=== PATIENT | male | born 1950 | race Caucasian/White ===

== ENCOUNTER 2017-11-14 18:28 | Inpatient (IN) ==
[2017-11-14] MEDS ORDERED: PIPERACILLIN/TAZOBACTAM 3,375 MG in SODIUM CHLORIDE 0.9% 100 ML IV STA (18:46)
[2017-11-14] MEDS ORDERED: FUROSEMIDE 100 MG/10 ML VIAL IV STA (18:46)
[2017-11-14 19:02] LABS: Basophils % 0.1 % (0.0-0.8); Hematocrit 38.7 VOL% (42.0-52.0); Immature Granulocytes % 1.2 %; Immature Granulocytes Absolute 0.08 #; Lymphocytes # 0.3 10*3/uL (1.4-4.0); Lymphocytes % 4.7 % (21.2-54.2); Mean Corpuscular HGB Conc 33.6 GM/DL (32-36); Mean Corpuscular Hemoglobin 32 PG (27-34); Mean Platelet Volume 10.3 FL (9.6-12.0); Monocytes # 0.3 10*3/uL (0.11-0.8); Monocytes % 4.7 % (1.7-12.7); Neutrophils # 6.1 10*3/uL (1.4-7.4); Neutrophils % 89.3 % (38.7-73.9); Platelet Count 111 T/CUMM (130-400); Red Blood Count 4.03 MC/CUMM (3.8-5.5); Red Cell Distribution Width 16.7 % (9.3-17.3); White Blood Count 6.8 T/CUMM (4-12)
[2017-11-14] MEDS: ALBUTEROL 2.5 MG/3 ML NEB RESP TX SCH (19:08)
[2017-11-14 19:20] LABS: INR 0.9; Partial Thromboplastin Time 26.5 SECS (0-40)
[2017-11-14 19:27] LABS: Albumin 2.7 G/DL (3.4-5.0); Bilirubin,Total 0.9 MG/DL (0.2-1.0); Calcium 10.3 MG/DL (8.5-10.1); Osmolality,Calculated 287.5 MOS/KG (273-304); Potassium 3.9 MMOL/L (3.5-5.1); Total Protein 6.3 G/DL (6.4-8.3); Troponin I Only 0.039 NG/ML (0.00-0.045)
[2017-11-14] MEDS ORDERED: SODIUM CHLORIDE 0.9% 100 ML IV ONE (20:03)
[2017-11-14] MEDS ORDERED: PIPERACILLIN/TAZOBACTAM 3,375 MG VIAL IV ONE (20:03)
[2017-11-14] MEDS ORDERED: FUROSEMIDE 40 MG/4 ML VIAL ONE (20:04)
[2017-11-14 21:03] LABS: Lymphocytes 7 % (20-55); Platelet Estimate Decreased; Segmented Neutrophils 86 % (50-85); Total Cells Counted 100
[2017-11-14 21:18] LABS: ABG HCO3 33.8 MMOL/L (20-26); ABG Oxygen Saturation 88.8 % (95-100); ABG PCO2 51.4 MM HG (35-48); ABG PH 7.436 (7.35-7.45); ABG PO2 55.7 MM HG (80-95); ABG TCO2 35.4 MMOL/L (23-27); Allen Test Positive
[2017-11-14] MEDS ORDERED: DEXTROSE 50% 25 GM/50 ML VIAL IV PRN (22:29)
[2017-11-14] MEDS ORDERED: GLUCAGON 1 MG VIAL IM PRN (22:29)
[2017-11-14] MEDS ORDERED: SODIUM CHLORIDE 0.9% 500 ML IV ONE (22:29)
[2017-11-14] MEDS ORDERED: ONDANSETRON 4 MG/2 ML VIAL IV PRN (22:29)
[2017-11-14] MEDS ORDERED: ENOXAPARIN 40 MG/0.4 ML SYRINGE SUBCUT SCH (22:29)
[2017-11-14] MEDS ORDERED: methylPREDNISolone SOD SUC 125 MG/2 ML VIAL IV ONE (22:29)
[2017-11-14] MEDS ORDERED: ALBUTEROL/IPRATROPIUM 3 ML NEB RESP TX PRN (22:29)
[2017-11-14] MEDS ORDERED: HEPARIN 5,000 UNIT/1 ML VIAL IV ONE (22:47)
[2017-11-14 22:51] LABS: Apearance,Urine Slightly Hazy (Clear); Bacteria,Urine Many /HPF (Few); Bilirubin,Urine Negative (Negative); Blood, Urine Small mg/dL (Negative); Glucose,Urine (UA) 150 mg/dL (Negative); Hyaline Casts,Urine 9 /LPF (0-3); Ketones,Urine Negative (Negative); Mucus,Urine Few /LPF (Occasional); Nitrite,Urine Negative (Negative); Protein,Urine Negative; RBC,Urine 5 /HPF (0-4); Urine Color Yellow (Yellow); Urine Specific Gravity 1.013 (1.001-1.035); Urine Urobilinogen < 2.0 EU/DL (0.2-1.0); WBC,Urine 5 /HPF (0-6)
[2017-11-14] MEDS ORDERED: KETAMINE 500 MG/10 ML VIAL ONE (23:08)
[2017-11-14] MEDS ORDERED: ROCURONIUM 100 MG/10 ML VIAL IV ONE ×2 (23:09→23:14)
[2017-11-14] MEDS ORDERED: KETAMINE 500 MG/10 ML VIAL IV ONE (23:14)
[2017-11-14] MEDS: PROPOFOL 1,000 MG/100 ML BOTTLE IV SCH (23:20)
[2017-11-14] MEDS ORDERED: NOREPINEPHRINE 4 MG/4 ML VIAL IV ONE (23:23)
[2017-11-14] MEDS: HEPARIN DRIP 25,000 UNITS/500 ML PREMIX IV SCH (23:41)
[2017-11-14] MEDS: SODIUM CHLORIDE 0.9% 1,000 ML IV SCH (23:52)
[2017-11-15] MEDS: fentaNYL INJ 1,250 MCG in SODIUM CHLORIDE 0.9% 225 ML IV SCH ×3 (00:26→23:45)
[2017-11-15] MEDS: NOREPINEPHRINE 8 MG in SODIUM CHLORIDE 0.9% 242 ML IV SCH ×2 (00:30→23:44)
[2017-11-15] MEDS: INSULIN REGULAR 100 UNIT/ML SUBCUT SCH ×4 (00:52→17:15)
[2017-11-15 01:07] LABS: ABG HCO3 30.7 MMOL/L (20-26); ABG Oxygen Saturation 95.1 % (95-100); ABG PCO2 45.5 MM HG (35-48); ABG PH 7.453 (7.35-7.45); ABG TCO2 28.3 MMOL/L (23-27)
[2017-11-15] MEDS: ALBUTEROL/IPRATROPIUM 3 ML NEB RESP TX SCH ×4 (01:45→19:21)
[2017-11-15] MEDS: LEVOFLOXACIN INJ 750 MG in PREMIX 1 EACH IV SCH ×2 (02:11→22:26)
[2017-11-15 04:27] LABS: ABG Base Excess 4.9 MMOL/L (-2.5-2.5); ABG HCO3 28.9 MMOL/L (20-26); ABG PCO2 41.4 MM HG (35-48); ABG PH 7.456 (7.35-7.45); ABG TCO2 26.2 MMOL/L (23-27)
[2017-11-15 04:29] LABS: Hematocrit 33.2 VOL% (42.0-52.0); Hemoglobin 10.8 GM/DL (14.0-18.0); Immature Granulocytes % 0.7 %; Immature Granulocytes Absolute 0.04 #; Lymphocytes # 0.3 10*3/uL (1.4-4.0); Lymphocytes % 4.6 % (21.2-54.2); Mean Corpuscular HGB Conc 32.5 GM/DL (32-36); Mean Corpuscular Hemoglobin 31 PG (27-34); Mean Corpuscular Volume 96.5 FL (87-102); Mean Platelet Volume 10.4 FL (9.6-12.0); Monocytes # 0.2 10*3/uL (0.11-0.8); Monocytes % 3.3 % (1.7-12.7); Neutrophils # 5.5 10*3/uL (1.4-7.4); Neutrophils % 91.4 % (38.7-73.9); Red Blood Count 3.44 MC/CUMM (3.8-5.5); Red Cell Distribution Width 16.8 % (9.3-17.3)
[2017-11-15 04:32] LABS: Platelet Count 98 T/CUMM (130-400)
[2017-11-15] MEDS: PIPERACILLIN/TAZOBACTAM 3,375 MG in SODIUM CHLORIDE 0.9% 100 ML IV SCH ×3 (05:01→20:14)
[2017-11-15 05:09] LABS: Albumin 2.2 G/DL (3.4-5.0); Bilirubin,Total 0.6 MG/DL (0.2-1.0); Calcium 9.2 MG/DL (8.5-10.1); Osmolality,Calculated 291.5 MOS/KG (273-304); Potassium 3.7 MMOL/L (3.5-5.1); Risk Ratio 2.7; Total Protein 5.3 G/DL (6.4-8.3); VLDL CHOLESTEROL 23.4 MG/DL
[2017-11-15] MEDS: SODIUM CHLORIDE 0.9% 1,000 ML IV SCH ×4 (05:57→22:13)
[2017-11-15] MEDS: methylPREDNISolone SOD SUC 40 MG/1 ML VIAL IV SCH ×3 (06:20→17:15)
[2017-11-15 07:59] LABS: Band Neutrophils 14 % (0-10); Hypochromasia Slight; Lymphocytes 3 % (20-55); Platelet Estimate Decreased; Segmented Neutrophils 82 % (50-85); Total Cells Counted 100
[2017-11-15 08:44] LABS: ABG Base Excess 5.4 MMOL/L (-2.5-2.5); ABG HCO3 29.3 MMOL/L (20-26); ABG Oxygen Saturation 97.7 % (95-100); ABG PCO2 51.3 MM HG (35-48); ABG PH 7.396 (7.35-7.45); ABG PO2 94.7 MM HG (80-95); ABG TCO2 28.2 MMOL/L (23-27)
[2017-11-15] MEDS: POLYETHYLENE GLYCOL POWDER 17 GM PACK PO SCH (09:00)
[2017-11-15] MEDS: VANCOMYCIN INJ 1,500 MG in SODIUM CHLORIDE 0.9% 500 ML IV SCH ×3 (11:00→22:26)
[2017-11-15] MEDS: PROPOFOL 1,000 MG/100 ML BOTTLE IV SCH ×2 (15:00→23:43)
[2017-11-15] MEDS: HEPARIN DRIP 25,000 UNITS/500 ML PREMIX IV SCH ×2 (15:00→22:23)
[2017-11-15] MEDS ORDERED: ASPIRIN CHEW 81 MG TABLET PO ONE (17:48)
[2017-11-15] MEDS: PANTOPRAZOLE 40 MG VIAL IV SCH ×2 (20:14)
[2017-11-16] MEDS: methylPREDNISolone SOD SUC 40 MG/1 ML VIAL IV SCH ×4 (00:18→18:31)
[2017-11-16] MEDS: INSULIN REGULAR 100 UNIT/ML SUBCUT SCH ×4 (00:19→18:30)
[2017-11-16] MEDS: ALBUTEROL/IPRATROPIUM 3 ML NEB RESP TX SCH ×4 (01:19→19:56)
[2017-11-16] MEDS: PIPERACILLIN/TAZOBACTAM 3,375 MG in SODIUM CHLORIDE 0.9% 100 ML IV SCH ×3 (03:35→20:40)
[2017-11-16 03:57] LABS: ABG HCO3 27.1 MMOL/L (20-26); ABG Oxygen Saturation 97.9 % (95-100); ABG PH 7.342 (7.35-7.45); ABG TCO2 27.2 MMOL/L (23-27)
[2017-11-16 04:27] LABS: Hematocrit 30.3 VOL% (42.0-52.0); Hemoglobin 10.1 GM/DL (14.0-18.0); Immature Granulocytes % 1.2 %; Immature Granulocytes Absolute 0.06 #; Lymphocytes # 0.3 10*3/uL (1.4-4.0); Lymphocytes % 6.9 % (21.2-54.2); Mean Corpuscular HGB Conc 33.3 GM/DL (32-36); Mean Corpuscular Hemoglobin 32 PG (27-34); Mean Corpuscular Volume 94.4 FL (87-102); Mean Platelet Volume 10.3 FL (9.6-12.0); Monocytes # 0.1 10*3/uL (0.11-0.8); Monocytes % 2.6 % (1.7-12.7); Neutrophils # 4.4 10*3/uL (1.4-7.4); Neutrophils % 89.3 % (38.7-73.9); Platelet Count 84 T/CUMM (130-400); Red Blood Count 3.21 MC/CUMM (3.8-5.5); Red Cell Distribution Width 15.9 % (9.3-17.3); White Blood Count 4.9 T/CUMM (4-12)
[2017-11-16] MEDS: PROPOFOL 1,000 MG/100 ML BOTTLE IV SCH ×3 (04:47→20:41)
[2017-11-16 05:04] LABS: Band Neutrophils 26 % (0-10); Lymphocytes 11 % (20-55); Segmented Neutrophils 63 % (50-85); Total Cells Counted 100
[2017-11-16 05:05] LABS: Anisocytosis 1+; Polychromasia Slight
[2017-11-16 05:07] LABS: Calcium 9.6 MG/DL (8.5-10.1); Potassium 3.2 MMOL/L (3.5-5.1)
[2017-11-16] MEDS: SODIUM CHLORIDE 0.9% 1,000 ML IV SCH ×3 (06:54→23:33)
[2017-11-16] MEDS ORDERED: LIDOCAINE 2% 20 ML VIAL RESP TX ONE (06:59)
[2017-11-16] MEDS ORDERED: LIDOCAINE 1% 20 ML VIAL MISC INJ ONE (06:59)
[2017-11-16] MEDS: POLYETHYLENE GLYCOL POWDER 17 GM PACK PO SCH (10:05)
[2017-11-16] MEDS: BACLOFEN 10 MG TABLET PO SCH ×3 (10:07→20:57)
[2017-11-16] MEDS: DULoxetine 30 MG CAPSULE PO SCH (10:07)
[2017-11-16] MEDS: ASPIRIN CHEW 81 MG TABLET PO SCH (10:07)
[2017-11-16] MEDS: rOPINIRole 4 MG TABLET PO SCH ×3 (10:07→20:59)
[2017-11-16] MEDS: APIXABAN 5 MG TABLET PO SCH ×2 (10:13→20:57)
[2017-11-16] MEDS: GABAPENTIN 600 MG TABLET PO SCH ×4 (10:13→20:57)
[2017-11-16] MEDS: POTASSIUM CHLORIDE RIDER 20 MEQ in PREMIX 1 EACH IV SCH ×2 (10:14→11:15)
[2017-11-16] MEDS: fentaNYL INJ 1,250 MCG in SODIUM CHLORIDE 0.9% 225 ML IV SCH ×2 (12:03→19:21)
[2017-11-16] MEDS: VANCOMYCIN INJ 1,500 MG in SODIUM CHLORIDE 0.9% 500 ML IV SCH ×2 (15:53→23:32)
[2017-11-16] MEDS: PANTOPRAZOLE 40 MG VIAL IV SCH (20:57)
[2017-11-16] MEDS: ATORVASTATIN 80 MG TABLET PO SCH (20:57)
[2017-11-16] MEDS: LEVOFLOXACIN INJ 750 MG in PREMIX 1 EACH IV SCH (22:22)
[2017-11-16] MEDS: NOREPINEPHRINE 8 MG in SODIUM CHLORIDE 0.9% 242 ML IV SCH (23:31)
[2017-11-17] MEDS: methylPREDNISolone SOD SUC 40 MG/1 ML VIAL IV SCH ×4 (00:01→21:50)
[2017-11-17] MEDS: INSULIN REGULAR 100 UNIT/ML SUBCUT SCH ×5 (00:01→23:53)
[2017-11-17] MEDS: fentaNYL INJ 1,250 MCG in SODIUM CHLORIDE 0.9% 225 ML IV SCH ×3 (00:11→13:48)
[2017-11-17] MEDS: ALBUTEROL/IPRATROPIUM 3 ML NEB RESP TX SCH ×4 (01:24→19:20)
[2017-11-17 03:49] LABS: Hematocrit 27.5 VOL% (42.0-52.0); Hemoglobin 8.8 GM/DL (14.0-18.0); Immature Granulocytes % 2.2 %; Immature Granulocytes Absolute 0.09 #; Lymphocytes # 0.3 10*3/uL (1.4-4.0); Lymphocytes % 7.6 % (21.2-54.2); Mean Corpuscular Hemoglobin 31 PG (27-34); Mean Corpuscular Volume 98.2 FL (87-102); Mean Platelet Volume 10.2 FL (9.6-12.0); Monocytes # 0.1 10*3/uL (0.11-0.8); Monocytes % 3.4 % (1.7-12.7); Neutrophils # 3.5 10*3/uL (1.4-7.4); Neutrophils % 86.8 % (38.7-73.9); Red Cell Distribution Width 15.9 % (9.3-17.3); White Blood Count 4.1 T/CUMM (4-12)
[2017-11-17 04:01] LABS: Platelet Count 81 T/CUMM (130-400)
[2017-11-17] MEDS: PIPERACILLIN/TAZOBACTAM 3,375 MG in SODIUM CHLORIDE 0.9% 100 ML IV SCH ×3 (04:02→20:27)
[2017-11-17 04:05] LABS: ABG HCO3 26.2 MMOL/L (20-26); ABG Oxygen Saturation 98.3 % (95-100); ABG PCO2 49.3 MM HG (35-48); ABG PH 7.362 (7.35-7.45); ABG TCO2 25.8 MMOL/L (23-27)
[2017-11-17 04:12] LABS: Calcium 9.3 MG/DL (8.5-10.1); Potassium 3.9 MMOL/L (3.5-5.1)
[2017-11-17 04:46] LABS: Band Neutrophils 2 % (0-10); Giant Platelets Few; Hypochromasia 1+; Lymphocytes 7 % (20-55); Ovalocytes Slight; Platelet Estimate Decreased; Segmented Neutrophils 87 % (50-85); Total Cells Counted 100
[2017-11-17] MEDS: PROPOFOL 1,000 MG/100 ML BOTTLE IV SCH (06:01)
[2017-11-17] MEDS: SODIUM CHLORIDE 0.9% 1,000 ML IV SCH ×3 (07:46→18:13)
[2017-11-17] MEDS: rOPINIRole 4 MG TABLET PO SCH ×3 (09:36→20:26)
[2017-11-17] MEDS: APIXABAN 5 MG TABLET PO SCH ×2 (09:36→20:27)
[2017-11-17] MEDS: DULoxetine 30 MG CAPSULE PO SCH (09:36)
[2017-11-17] MEDS: GABAPENTIN 600 MG TABLET PO SCH ×4 (09:36→20:27)
[2017-11-17] MEDS: BACLOFEN 10 MG TABLET PO SCH ×3 (09:37→20:26)
[2017-11-17] MEDS: POLYETHYLENE GLYCOL POWDER 17 GM PACK PO SCH (09:37)
[2017-11-17] MEDS: ASPIRIN CHEW 81 MG TABLET PO SCH (09:37)
[2017-11-17] MEDS: DEXMEDETOMIDINE 200 MCG in SODIUM CHLORIDE 0.9% 48 ML IV SCH ×4 (09:45→20:25)
[2017-11-17] MEDS ORDERED: HALOPERIDOL 5 MG/ML AMP ONE (10:32)
[2017-11-17] MEDS: HALOPERIDOL 5 MG/ML AMP IV SCH ×2 (10:52→20:27)
[2017-11-17] MEDS: MORPHINE 2 MG/1 ML SYRINGE IV PRN (10:52)
[2017-11-17] MEDS: VANCOMYCIN INJ 1,500 MG in SODIUM CHLORIDE 0.9% 500 ML IV SCH (11:25)
[2017-11-17] MEDS: FUROSEMIDE 40 MG/4 ML VIAL IV SCH ×2 (13:44→17:52)
[2017-11-17] MEDS: LISINOPRIL 5 MG TABLET PO SCH (13:45)
[2017-11-17] MEDS: ATORVASTATIN 80 MG TABLET PO SCH (20:26)
[2017-11-17] MEDS: PANTOPRAZOLE 40 MG VIAL IV SCH (20:32)
[2017-11-17] MEDS: LEVOFLOXACIN INJ 750 MG in PREMIX 1 EACH IV SCH (22:25)
[2017-11-17] MEDS: NOREPINEPHRINE 8 MG in SODIUM CHLORIDE 0.9% 242 ML IV SCH (23:52)
[2017-11-18] MEDS: VANCOMYCIN INJ 1,500 MG in SODIUM CHLORIDE 0.9% 500 ML IV SCH (00:16)
[2017-11-18] MEDS: SODIUM CHLORIDE 0.9% 1,000 ML IV SCH ×3 (00:18→17:46)
[2017-11-18] MEDS: fentaNYL INJ 1,250 MCG in SODIUM CHLORIDE 0.9% 225 ML IV SCH ×3 (00:18→18:21)
[2017-11-18] MEDS: ALBUTEROL/IPRATROPIUM 3 ML NEB RESP TX SCH ×4 (00:20→18:57)
[2017-11-18] MEDS: DEXMEDETOMIDINE 200 MCG in SODIUM CHLORIDE 0.9% 48 ML IV SCH ×4 (01:50→10:44)
[2017-11-18 03:55] LABS: ABG Base Excess 4.6 MMOL/L (-2.5-2.5); ABG HCO3 30.5 MMOL/L (20-26); ABG Oxygen Saturation 95.8 % (95-100); ABG PCO2 51.5 MM HG (35-48); ABG PH 7.391 (7.35-7.45); ABG PO2 81.5 MM HG (80-95); ABG TCO2 32.1 MMOL/L (23-27)
[2017-11-18] MEDS: PIPERACILLIN/TAZOBACTAM 3,375 MG in SODIUM CHLORIDE 0.9% 100 ML IV SCH ×3 (04:04→21:10)
[2017-11-18 04:06] LABS: Basophils % 0.1 % (0.0-0.8); Hematocrit 34.5 VOL% (42.0-52.0); Hemoglobin 11.4 GM/DL (14.0-18.0); Immature Granulocytes % 3.3 %; Immature Granulocytes Absolute 0.23 #; Lymphocytes # 0.3 10*3/uL (1.4-4.0); Lymphocytes % 4.1 % (21.2-54.2); Mean Corpuscular Hemoglobin 32 PG (27-34); Mean Corpuscular Volume 96.1 FL (87-102); Mean Platelet Volume 10.4 FL (9.6-12.0); Monocytes # 0.3 10*3/uL (0.11-0.8); Monocytes % 4.2 % (1.7-12.7); Neutrophils # 6.1 10*3/uL (1.4-7.4); Neutrophils % 88.3 % (38.7-73.9); Platelet Count 103 T/CUMM (130-400); Red Blood Count 3.59 MC/CUMM (3.8-5.5); Red Cell Distribution Width 15.9 % (9.3-17.3); White Blood Count 6.9 T/CUMM (4-12)
[2017-11-18 04:44] LABS: Band Neutrophils 7 % (0-10); Lymphocytes 7 % (20-55); Metamyelocytes 1 %; Segmented Neutrophils 77 % (50-85); Total Cells Counted 100
[2017-11-18 05:11] LABS: Prealbumin 26.3 MG/DL (20-40)
[2017-11-18 05:54] LABS: Alanine Aminotransferase 42 U/L (16-61); Albumin 2.3 G/DL (3.4-5.0); Alkaline Phosphatase 96 U/L (45-117); Aspartate Amino Transferase 15 U/L (0-37); Bilirubin,Total < 0.39 MG/DL (0.2-1.0); Blood Urea Nitrogen 23 MG/DL (7-18); Calcium 9.3 MG/DL (8.5-10.1); Glucose 188 MG/DL (74-106); Potassium 3.1 MMOL/L (3.5-5.1); Sodium 143 MMOL/L (136-145); Total Protein 5.2 G/DL (6.4-8.3)
[2017-11-18] MEDS: methylPREDNISolone SOD SUC 40 MG/1 ML VIAL IV SCH ×3 (06:30→18:32)
[2017-11-18] MEDS: INSULIN REGULAR 100 UNIT/ML SUBCUT SCH ×3 (06:30→18:32)
[2017-11-18] MEDS: GABAPENTIN 600 MG TABLET PO SCH ×4 (08:21→21:10)
[2017-11-18] MEDS: DULoxetine 30 MG CAPSULE PO SCH (08:22)
[2017-11-18] MEDS: FUROSEMIDE 40 MG/4 ML VIAL IV SCH ×2 (08:22→16:47)
[2017-11-18] MEDS: ASCORBIC ACID 500 MG TABLET PO SCH (08:22)
[2017-11-18] MEDS: rOPINIRole 4 MG TABLET PO SCH ×3 (08:22→21:11)
[2017-11-18] MEDS: LISINOPRIL 5 MG TABLET PO SCH (08:22)
[2017-11-18] MEDS: APIXABAN 5 MG TABLET PO SCH ×2 (08:22→21:10)
[2017-11-18] MEDS: BACLOFEN 10 MG TABLET PO SCH ×3 (08:22→21:10)
[2017-11-18] MEDS: HALOPERIDOL 5 MG/ML AMP IV SCH ×2 (08:25→21:17)
[2017-11-18] MEDS: ASPIRIN CHEW 81 MG TABLET PO SCH (08:36)
[2017-11-18] MEDS: POLYETHYLENE GLYCOL POWDER 17 GM PACK PO SCH (08:36)
[2017-11-18] MEDS ORDERED: POTASSIUM CHLORIDE 20 MEQ/15 ML UDCUP PER TUBE PRN (09:02)
[2017-11-18] MEDS: MORPHINE 2 MG/1 ML SYRINGE IV PRN (10:55)
[2017-11-18] MEDS ORDERED: DEXMEDETOMIDINE 400 MCG in SODIUM CHLORIDE 0.9% 96 ML IV SCH (11:00)
[2017-11-18] MEDS: DEXMEDETOMIDINE 400 MCG in SODIUM CHLORIDE 0.9% 96 ML IV SCH ×2 (14:26→21:21)
[2017-11-18] MEDS: ZINC OXIDE PASTE 113 GM TUBE TOP SCH ×2 (16:47→21:16)
[2017-11-18] MEDS: ATORVASTATIN 80 MG TABLET PO SCH (21:11)
[2017-11-18] MEDS: PANTOPRAZOLE 40 MG VIAL IV SCH (21:12)
[2017-11-18] MEDS: POTASSIUM CHLORIDE 20 MEQ/15 ML UDCUP PER TUBE PRN ×2 (21:12→22:52)
[2017-11-18] MEDS: LEVOFLOXACIN INJ 750 MG in PREMIX 1 EACH IV SCH (22:47)
[2017-11-18] MEDS: NOREPINEPHRINE 8 MG in SODIUM CHLORIDE 0.9% 242 ML IV SCH (23:19)
[2017-11-19] MEDS: DEXMEDETOMIDINE 400 MCG in SODIUM CHLORIDE 0.9% 96 ML IV SCH ×2 (01:19→06:23)
[2017-11-19] MEDS: SODIUM CHLORIDE 0.9% 1,000 ML IV SCH ×2 (02:17→07:19)
[2017-11-19] MEDS: ALBUTEROL/IPRATROPIUM 3 ML NEB RESP TX SCH ×4 (02:32→19:33)
[2017-11-19 03:54] LABS: ABG Base Excess 9.1 MMOL/L (-2.5-2.5); ABG HCO3 33.8 MMOL/L (20-26); ABG PCO2 47.3 MM HG (35-48); ABG PH 7.472 (7.35-7.45); ABG PO2 84.2 MM HG (80-95); ABG TCO2 35.3 MMOL/L (23-27)
[2017-11-19 04:04] LABS: Hemoglobin 9.7 GM/DL (14.0-18.0); Immature Granulocytes % 2.6 %; Immature Granulocytes Absolute 0.09 #; Lymphocytes # 0.2 10*3/uL (1.4-4.0); Lymphocytes % 6.7 % (21.2-54.2); Mean Corpuscular HGB Conc 33.4 GM/DL (32-36); Mean Corpuscular Hemoglobin 32 PG (27-34); Mean Corpuscular Volume 95.1 FL (87-102); Mean Platelet Volume 10.3 FL (9.6-12.0); Monocytes # 0.2 10*3/uL (0.11-0.8); Monocytes % 4.7 % (1.7-12.7); Red Blood Count 3.05 MC/CUMM (3.8-5.5); Red Cell Distribution Width 15.8 % (9.3-17.3); White Blood Count 3.4 T/CUMM (4-12)
[2017-11-19 04:07] LABS: Platelet Count 97 T/CUMM (130-400)
[2017-11-19 04:42] LABS: Lymphocytes 6 % (20-55); Segmented Neutrophils 88 % (50-85); Total Cells Counted 100
[2017-11-19 04:44] LABS: Hypochromasia Slight; Platelet Estimate Adequate; Polychromasia Slight
[2017-11-19] MEDS: PIPERACILLIN/TAZOBACTAM 3,375 MG in SODIUM CHLORIDE 0.9% 100 ML IV SCH ×3 (04:44→22:22)
[2017-11-19 04:45] LABS: Tear Drop Cells Slight
[2017-11-19 05:38] LABS: Calcium 8.9 MG/DL (8.5-10.1); Osmolality,Calculated 296.7 MOS/KG (273-304); Potassium 3.8 MMOL/L (3.5-5.1)
[2017-11-19] MEDS: fentaNYL INJ 1,250 MCG in SODIUM CHLORIDE 0.9% 225 ML IV SCH (05:46)
[2017-11-19] MEDS: INSULIN REGULAR 100 UNIT/ML SUBCUT SCH ×4 (06:14→19:29)
[2017-11-19] MEDS: POTASSIUM CHLORIDE 20 MEQ/15 ML UDCUP PER TUBE PRN (06:24)
[2017-11-19] MEDS: methylPREDNISolone SOD SUC 40 MG/1 ML VIAL IV SCH ×2 (06:24→21:56)
[2017-11-19] MEDS: VANCOMYCIN INJ 1,500 MG in SODIUM CHLORIDE 0.9% 500 ML IV SCH ×2 (07:55→22:22)
[2017-11-19] MEDS: rOPINIRole 4 MG TABLET PO SCH ×3 (08:38→21:56)
[2017-11-19] MEDS: GABAPENTIN 600 MG TABLET PO SCH ×4 (08:38→21:56)
[2017-11-19] MEDS: ASPIRIN CHEW 81 MG TABLET PO SCH (08:38)
[2017-11-19] MEDS: BACLOFEN 10 MG TABLET PO SCH ×3 (08:38→21:57)
[2017-11-19] MEDS: ASCORBIC ACID 500 MG TABLET PO SCH (08:38)
[2017-11-19] MEDS: HALOPERIDOL 5 MG/ML AMP IV SCH ×2 (08:38→21:57)
[2017-11-19] MEDS: DULoxetine 30 MG CAPSULE PO SCH (08:38)
[2017-11-19] MEDS: APIXABAN 5 MG TABLET PO SCH ×2 (08:38→21:56)
[2017-11-19] MEDS: LISINOPRIL 5 MG TABLET PO SCH (08:38)
[2017-11-19] MEDS: FUROSEMIDE 40 MG/4 ML VIAL IV SCH ×2 (08:39→15:00)
[2017-11-19] MEDS: ZINC OXIDE PASTE 113 GM TUBE TOP SCH ×2 (08:39→22:28)
[2017-11-19] MEDS: POLYETHYLENE GLYCOL POWDER 17 GM PACK PO SCH (08:39)
[2017-11-19 10:13] LABS: ABG Base Excess 8.1 MMOL/L (-2.5-2.5); ABG HCO3 33.8 MMOL/L (20-26); ABG Oxygen Saturation 97.9 % (95-100); ABG PCO2 52.5 MM HG (35-48); ABG PH 7.427 (7.35-7.45); ABG PO2 113.3 MM HG (80-95); ABG TCO2 35.4 MMOL/L (23-27)
[2017-11-19] MEDS: MORPHINE 2 MG/1 ML SYRINGE IV PRN ×2 (12:32→17:07)
[2017-11-19 14:03] LABS: ABG Base Excess 11.1 MMOL/L (-2.5-2.5); ABG HCO3 35.9 MMOL/L (20-26); ABG PCO2 47.4 MM HG (35-48); ABG PH 7.497 (7.35-7.45); ABG PO2 55.4 MM HG (80-95); ABG TCO2 37.3 MMOL/L (23-27)
[2017-11-19] MEDS: ATORVASTATIN 80 MG TABLET PO SCH (21:56)
[2017-11-19] MEDS: PANTOPRAZOLE 40 MG VIAL IV SCH (21:56)
[2017-11-19] MEDS: NOREPINEPHRINE 8 MG in SODIUM CHLORIDE 0.9% 242 ML IV SCH (23:49)
[2017-11-19] MEDS: hydrALAZINE 20 MG/1 ML VIAL IV PRN (23:49)
[2017-11-20] MEDS: INSULIN REGULAR 100 UNIT/ML SUBCUT SCH ×5 (00:12→23:59)
[2017-11-20] MEDS: LEVOFLOXACIN INJ 750 MG in PREMIX 1 EACH IV SCH ×2 (00:15→23:49)
[2017-11-20] MEDS: MORPHINE 2 MG/1 ML SYRINGE IV PRN ×3 (00:37→08:22)
[2017-11-20 01:14] LABS: ABG Base Excess 13.9 MMOL/L (-2.5-2.5); ABG HCO3 38.3 MMOL/L (20-26); ABG Oxygen Saturation 92.4 % (95-100); ABG PCO2 46.7 MM HG (35-48); ABG PH 7.532 (7.35-7.45); ABG PO2 60.5 MM HG (80-95); ABG TCO2 39.8 MMOL/L (23-27)
[2017-11-20 01:18] LABS: Basophils % 0.2 % (0.0-0.8); Hematocrit 36.7 VOL% (42.0-52.0); Hemoglobin 12.3 GM/DL (14.0-18.0); Immature Granulocytes % 2.1 %; Immature Granulocytes Absolute 0.25 #; Lymphocytes # 0.5 10*3/uL (1.4-4.0); Lymphocytes % 4.4 % (21.2-54.2); Mean Corpuscular HGB Conc 33.5 GM/DL (32-36); Mean Corpuscular Hemoglobin 32 PG (27-34); Mean Corpuscular Volume 94.1 FL (87-102); Monocytes # 0.4 10*3/uL (0.11-0.8); Monocytes % 3.4 % (1.7-12.7); Neutrophils % 89.9 % (38.7-73.9); Platelet Count 182 T/CUMM (130-400); White Blood Count 12.2 T/CUMM (4-12)
[2017-11-20] MEDS ORDERED: POTASSIUM CHLORIDE RIDER 100 ML IV ONE (01:19)
[2017-11-20 01:31] LABS: PT Patient Result 10.6 SECS; Partial Thromboplastin Time 26.1 SECS (0-40)
[2017-11-20] MEDS: ALBUTEROL/IPRATROPIUM 3 ML NEB RESP TX SCH ×4 (01:34→19:10)
[2017-11-20] MEDS ORDERED: DILTIAZEM 100 MG VIAL.ADD IV ONE (01:44)
[2017-11-20 01:55] LABS: Calcium 9.4 MG/DL (8.5-10.1); Osmolality,Calculated 289.3 MOS/KG (273-304); Potassium 3.4 MMOL/L (3.5-5.1)
[2017-11-20] MEDS: DILTIAZEM INJ 100 MG in SODIUM CHLORIDE 0.9% 100 ML IV SCH ×2 (01:56→07:50)
[2017-11-20] MEDS: POTASSIUM CHLORIDE RIDER 20 MEQ in PREMIX 1 EACH IV PRN ×2 (02:14→13:20)
[2017-11-20 02:15] LABS: Band Neutrophils 7 % (0-10); Lymphocytes 4 % (20-55); Metamyelocytes 1 %; Segmented Neutrophils 83 % (50-85); Total Cells Counted 100
[2017-11-20 02:20] LABS: Troponin I Only 0.034 NG/ML (0.00-0.045)
[2017-11-20] MEDS ORDERED: METOPROLOL TARTRATE 5 MG/5 ML VIAL IV ONE (03:00)
[2017-11-20] MEDS: hydrALAZINE 20 MG/1 ML VIAL IV PRN ×2 (04:33→10:27)
[2017-11-20] MEDS: PIPERACILLIN/TAZOBACTAM 3,375 MG in SODIUM CHLORIDE 0.9% 100 ML IV SCH ×3 (04:40→22:28)
[2017-11-20] MEDS: POTASSIUM CHLORIDE RIDER 10 MEQ in PREMIX 1 EACH IV PRN ×2 (04:41→16:15)
[2017-11-20] MEDS: methylPREDNISolone SOD SUC 40 MG/1 ML VIAL IV SCH ×2 (06:15→20:02)
[2017-11-20] MEDS: FUROSEMIDE 40 MG/4 ML VIAL IV SCH ×2 (08:25→14:15)
[2017-11-20] MEDS: VANCOMYCIN INJ 1,500 MG in SODIUM CHLORIDE 0.9% 500 ML IV SCH ×2 (08:28→21:24)
[2017-11-20] MEDS ORDERED: DIGOXIN 0.5 MG/2 ML AMP IV ONE (11:46)
[2017-11-20] MEDS ORDERED: DIGOXIN 0.5 MG/2 ML AMP ONE (11:47)
[2017-11-20] MEDS ORDERED: AMIODARONE 150 MG/3 ML VIAL ONE ×2 (11:56)
[2017-11-20 12:11] LABS: Potassium 3.4 MMOL/L (3.5-5.1)
[2017-11-20] MEDS ORDERED: AMIODARONE INJ 150 MG in DEXTROSE 5% 100 ML IV ONE (12:20)
[2017-11-20] MEDS: METOPROLOL TARTRATE 5 MG/5 ML VIAL IV SCH ×3 (12:26→12:39)
[2017-11-20] MEDS ORDERED: AMIODARONE INJ 450 MG in DEXTROSE 5% 241 ML IV SCH ×2 (12:30→20:30)
[2017-11-20] MEDS: rOPINIRole 4 MG TABLET PO SCH ×3 (13:01→22:29)
[2017-11-20] MEDS: DULoxetine 30 MG CAPSULE PO SCH (13:02)
[2017-11-20] MEDS: LISINOPRIL 5 MG TABLET PO SCH (13:02)
[2017-11-20] MEDS: APIXABAN 5 MG TABLET PO SCH ×2 (13:02→23:49)
[2017-11-20] MEDS: BACLOFEN 10 MG TABLET PO SCH ×3 (13:02→22:28)
[2017-11-20] MEDS: GABAPENTIN 600 MG TABLET PO SCH ×4 (13:02→22:29)
[2017-11-20] MEDS: ASPIRIN CHEW 81 MG TABLET PO SCH (13:02)
[2017-11-20] MEDS: POLYETHYLENE GLYCOL POWDER 17 GM PACK PO SCH (13:03)
[2017-11-20] MEDS: ZINC OXIDE PASTE 113 GM TUBE TOP SCH ×2 (13:03→22:28)
[2017-11-20] MEDS: ASCORBIC ACID 500 MG TABLET PO SCH (13:03)
[2017-11-20] MEDS ORDERED: SUCCINYLCHOLINE 200 MG/10 ML VIAL ONE (20:11)
[2017-11-20] MEDS ORDERED: ETOMIDATE 20 MG/10 ML VIAL IV ONE ×2 (20:11→23:30)
[2017-11-20] MEDS ORDERED: PROPOFOL 1,000 MG/100 ML BOTTLE IV ONE (20:11)
[2017-11-20] MEDS ORDERED: SUCCINYLCHOLINE 200 MG/10 ML VIAL IV ONE (20:35)
[2017-11-20 21:21] LABS: ABG HCO3 42.4 MMOL/L (20-26); ABG Oxygen Saturation 96.9 % (95-100); ABG PCO2 47.9 MM HG (35-48); ABG PH 7.565 (7.35-7.45); ABG PO2 86.9 MM HG (80-95); ABG TCO2 43.9 MMOL/L (23-27)
[2017-11-20] MEDS ORDERED: SODIUM CHLORIDE 0.9% 500 ML IV ONE (21:36)
[2017-11-20] MEDS: ATORVASTATIN 80 MG TABLET PO SCH (22:29)
[2017-11-20] MEDS: PANTOPRAZOLE 40 MG VIAL IV SCH (22:29)
[2017-11-20] MEDS: NOREPINEPHRINE 8 MG in SODIUM CHLORIDE 0.9% 242 ML IV SCH (23:25)
[2017-11-20] MEDS: PROPOFOL 1,000 MG/100 ML BOTTLE IV SCH (23:52)
[2017-11-21] MEDS: ALBUTEROL/IPRATROPIUM 3 ML NEB RESP TX SCH ×4 (01:02→19:21)
[2017-11-21] MEDS: DILTIAZEM INJ 100 MG in SODIUM CHLORIDE 0.9% 100 ML IV SCH ×2 (01:41→02:20)
[2017-11-21] MEDS: VANCOMYCIN INJ 1,500 MG in SODIUM CHLORIDE 0.9% 500 ML IV SCH ×2 (02:49→21:29)
[2017-11-21 03:43] LABS: Basophils % 0.1 % (0.0-0.8); Hemoglobin 11.2 GM/DL (14.0-18.0); Immature Granulocytes % 1.3 %; Immature Granulocytes Absolute 0.15 #; Lymphocytes # 0.4 10*3/uL (1.4-4.0); Lymphocytes % 3.5 % (21.2-54.2); Mean Corpuscular HGB Conc 32.9 GM/DL (32-36); Mean Corpuscular Hemoglobin 31 PG (27-34); Mean Corpuscular Volume 93.9 FL (87-102); Mean Platelet Volume 10.1 FL (9.6-12.0); Monocytes # 0.4 10*3/uL (0.11-0.8); Monocytes % 3.1 % (1.7-12.7); Neutrophils # 10.9 10*3/uL (1.4-7.4); Platelet Count 250 T/CUMM (130-400); Red Blood Count 3.62 MC/CUMM (3.8-5.5); Red Cell Distribution Width 15.9 % (9.3-17.3); White Blood Count 11.8 T/CUMM (4-12)
[2017-11-21 03:45] LABS: ABG Base Excess 13.3 MMOL/L (-2.5-2.5); ABG HCO3 37.2 MMOL/L (20-26); ABG Oxygen Saturation 98.9 % (95-100); ABG PCO2 46.4 MM HG (35-48); ABG PH 7.523 (7.35-7.45); ABG TCO2 33.6 MMOL/L (23-27)
[2017-11-21 04:04] LABS: Band Neutrophils 3 % (0-10); Lymphocytes 5 % (20-55); Macrocytosis 1+; Platelet Estimate Normal; Segmented Neutrophils 91 % (50-85); Total Cells Counted 100
[2017-11-21] MEDS: PIPERACILLIN/TAZOBACTAM 3,375 MG in SODIUM CHLORIDE 0.9% 100 ML IV SCH ×2 (04:24→11:25)
[2017-11-21 04:37] LABS: Calcium 9.4 MG/DL (8.5-10.1); Osmolality,Calculated 289.5 MOS/KG (273-304); Potassium 3.1 MMOL/L (3.5-5.1)
[2017-11-21] MEDS: POTASSIUM CHLORIDE 20 MEQ/15 ML UDCUP PER TUBE PRN ×3 (05:23→12:58)
[2017-11-21] MEDS: INSULIN REGULAR 100 UNIT/ML SUBCUT SCH ×3 (05:29→18:53)
[2017-11-21] MEDS: methylPREDNISolone SOD SUC 40 MG/1 ML VIAL IV SCH ×2 (06:02→18:53)
[2017-11-21] MEDS ORDERED: LIDOCAINE 1% 20 ML VIAL MISC INJ ONE (06:31)
[2017-11-21] MEDS ORDERED: LIDOCAINE 2% 20 ML VIAL RESP TX ONE (06:31)
[2017-11-21] MEDS: SODIUM CHLOR 0.45% KCL 20 MEQ 20 MEQ/1,000 ML BAG IV SCH ×2 (06:35→21:27)
[2017-11-21] MEDS: FUROSEMIDE 40 MG/4 ML VIAL IV SCH ×2 (08:31→16:05)
[2017-11-21] MEDS: ASPIRIN CHEW 81 MG TABLET PO SCH (08:32)
[2017-11-21] MEDS: GABAPENTIN 600 MG TABLET PO SCH ×4 (08:32→21:30)
[2017-11-21] MEDS: ASCORBIC ACID 500 MG TABLET PO SCH (08:32)
[2017-11-21] MEDS: rOPINIRole 4 MG TABLET PO SCH ×3 (08:32→21:30)
[2017-11-21] MEDS: DULoxetine 30 MG CAPSULE PO SCH ×2 (08:32→08:37)
[2017-11-21] MEDS: APIXABAN 5 MG TABLET PO SCH ×2 (08:32→21:29)
[2017-11-21] MEDS: BACLOFEN 10 MG TABLET PO SCH ×3 (08:32→21:29)
[2017-11-21] MEDS: POLYETHYLENE GLYCOL POWDER 17 GM PACK PO SCH (08:32)
[2017-11-21] MEDS: LISINOPRIL 5 MG TABLET PO SCH (08:33)
[2017-11-21] MEDS: PROPOFOL 1,000 MG/100 ML BOTTLE IV SCH ×2 (09:01→23:12)
[2017-11-21] MEDS: NOREPINEPHRINE 8 MG in SODIUM CHLORIDE 0.9% 242 ML IV SCH ×2 (09:01→18:54)
[2017-11-21] MEDS: ZINC OXIDE PASTE 113 GM TUBE TOP SCH ×2 (11:25→21:54)
[2017-11-21] MEDS: AMIODARONE 200 MG TABLET PO SCH ×2 (11:25→21:30)
[2017-11-21] MEDS: cefTRIAXone 2,000 MG in SYRINGE 1 EACH IV SCH (17:40)
[2017-11-21] MEDS: METOPROLOL TARTRATE 25 MG TABLET PO SCH ×2 (17:41→21:30)
[2017-11-21] MEDS: ATORVASTATIN 80 MG TABLET PO SCH (21:29)
[2017-11-21] MEDS: PANTOPRAZOLE 40 MG VIAL IV SCH (21:29)
[2017-11-22] MEDS: NOREPINEPHRINE 8 MG in SODIUM CHLORIDE 0.9% 242 ML IV SCH ×2 (01:15→07:00)
[2017-11-22] MEDS: PROPOFOL 1,000 MG/100 ML BOTTLE IV SCH ×4 (01:16→18:31)
[2017-11-22] MEDS: ALBUTEROL/IPRATROPIUM 3 ML NEB RESP TX SCH ×4 (01:27→19:30)
[2017-11-22] MEDS: DILTIAZEM INJ 100 MG in SODIUM CHLORIDE 0.9% 100 ML IV SCH (02:12)
[2017-11-22 04:19] LABS: ABG HCO3 31.7 MMOL/L (20-26); ABG Oxygen Saturation 96.4 % (95-100); ABG PH 7.459 (7.35-7.45); ABG PO2 81.4 MM HG (80-95); ABG TCO2 27.9 MMOL/L (23-27); Allen Test Positive; Pt O2 Delivery Device Ventilator
[2017-11-22 05:37] LABS: Hematocrit 28.1 VOL% (42.0-52.0); Hemoglobin 9.2 GM/DL (14.0-18.0); Immature Granulocytes % 0.7 %; Immature Granulocytes Absolute 0.05 #; Lymphocytes # 0.3 10*3/uL (1.4-4.0); Lymphocytes % 4.6 % (21.2-54.2); Mean Corpuscular HGB Conc 32.7 GM/DL (32-36); Mean Corpuscular Hemoglobin 31 PG (27-34); Mean Corpuscular Volume 95.6 FL (87-102); Mean Platelet Volume 10.2 FL (9.6-12.0); Monocytes # 0.2 10*3/uL (0.11-0.8); Monocytes % 2.2 % (1.7-12.7); Neutrophils # 6.9 10*3/uL (1.4-7.4); Neutrophils % 92.5 % (38.7-73.9); Platelet Count 175 T/CUMM (130-400); Red Blood Count 2.94 MC/CUMM (3.8-5.5); Red Cell Distribution Width 15.7 % (9.3-17.3); White Blood Count 7.4 T/CUMM (4-12)
[2017-11-22 06:22] LABS: Band Neutrophils 7 % (0-10); Lymphocytes 5 % (20-55); Platelet Estimate Normal; Segmented Neutrophils 86 % (50-85); Total Cells Counted 100
[2017-11-22 06:23] LABS: Giant Platelets Few; Hypochromasia 1+; Ovalocytes Slight
[2017-11-22] MEDS: INSULIN REGULAR 100 UNIT/ML SUBCUT SCH ×4 (06:57→18:11)
[2017-11-22] MEDS: methylPREDNISolone SOD SUC 40 MG/1 ML VIAL IV SCH ×2 (06:58→18:11)
[2017-11-22 07:33] LABS: Calcium 9.1 MG/DL (8.5-10.1); Osmolality,Calculated 286.7 MOS/KG (273-304); Potassium 3.8 MMOL/L (3.5-5.1)
[2017-11-22] MEDS: LISINOPRIL 5 MG TABLET PO SCH (08:18)
[2017-11-22] MEDS: rOPINIRole 4 MG TABLET PO SCH ×3 (08:27→21:18)
[2017-11-22] MEDS: APIXABAN 5 MG TABLET PO SCH ×2 (08:27→21:19)
[2017-11-22] MEDS: POLYETHYLENE GLYCOL POWDER 17 GM PACK PO SCH (08:27)
[2017-11-22] MEDS: ASCORBIC ACID 500 MG TABLET PO SCH (08:27)
[2017-11-22] MEDS: BACLOFEN 10 MG TABLET PO SCH ×3 (08:27→21:19)
[2017-11-22] MEDS: AMIODARONE 200 MG TABLET PO SCH (08:27)
[2017-11-22] MEDS: GABAPENTIN 600 MG TABLET PO SCH ×4 (08:27→21:19)
[2017-11-22] MEDS: ASPIRIN CHEW 81 MG TABLET PO SCH (08:27)
[2017-11-22] MEDS: DULoxetine 30 MG CAPSULE PO SCH (08:28)
[2017-11-22] MEDS: METOPROLOL TARTRATE 25 MG TABLET PO SCH ×3 (08:28→21:19)
[2017-11-22] MEDS: FUROSEMIDE 40 MG/4 ML VIAL IV SCH (08:28)
[2017-11-22] MEDS: ZINC OXIDE PASTE 113 GM TUBE TOP SCH ×2 (08:28→21:18)
[2017-11-22] MEDS: cefTRIAXone 2,000 MG in SYRINGE 1 EACH IV SCH (13:21)
[2017-11-22] MEDS: VANCOMYCIN INJ 1,500 MG in SODIUM CHLORIDE 0.9% 500 ML IV SCH (13:21)
[2017-11-22] MEDS: POTASSIUM CHLORIDE 20 MEQ/15 ML UDCUP PER TUBE PRN (13:22)
[2017-11-22] MEDS: SODIUM CHLOR 0.45% KCL 20 MEQ 20 MEQ/1,000 ML BAG IV SCH (13:28)
[2017-11-22] MEDS ORDERED: POLYETHYLENE GLYCOL POWDER 17 GM PACK PO PRN (14:54)
[2017-11-22] MEDS: PANTOPRAZOLE 40 MG VIAL IV SCH (21:18)
[2017-11-22] MEDS: ATORVASTATIN 80 MG TABLET PO SCH (21:19)
[2017-11-23] MEDS: PROPOFOL 1,000 MG/100 ML BOTTLE IV SCH ×2 (00:31→06:58)
[2017-11-23] MEDS: ALBUTEROL/IPRATROPIUM 3 ML NEB RESP TX SCH ×2 (01:09→06:59)
[2017-11-23] MEDS: NOREPINEPHRINE 8 MG in SODIUM CHLORIDE 0.9% 242 ML IV SCH ×4 (01:09→23:37)
[2017-11-23] MEDS: INSULIN REGULAR 100 UNIT/ML SUBCUT SCH ×4 (02:00→18:26)
[2017-11-23] MEDS: SODIUM CHLOR 0.45% KCL 20 MEQ 20 MEQ/1,000 ML BAG IV SCH (02:00)
[2017-11-23] MEDS: DILTIAZEM INJ 100 MG in SODIUM CHLORIDE 0.9% 100 ML IV SCH (02:00)
[2017-11-23 04:10] LABS: ABG HCO3 29.7 MMOL/L (20-26); ABG Oxygen Saturation 91.5 % (95-100); ABG PH 7.397 (7.35-7.45); ABG PO2 61.7 MM HG (80-95); Allen Test Positive; Pt O2 Delivery Device Ventilator
[2017-11-23] MEDS: methylPREDNISolone SOD SUC 40 MG/1 ML VIAL IV SCH ×2 (06:57→18:27)
[2017-11-23 07:22] LABS: Basophils % 0.3 % (0.0-0.8); Hematocrit 31.1 VOL% (42.0-52.0); Hemoglobin 10.1 GM/DL (14.0-18.0); Immature Granulocytes Absolute 0.04 #; Lymphocytes # 0.3 10*3/uL (1.4-4.0); Lymphocytes % 6.3 % (21.2-54.2); Mean Corpuscular HGB Conc 32.5 GM/DL (32-36); Mean Corpuscular Hemoglobin 31 PG (27-34); Mean Platelet Volume 10.2 FL (9.6-12.0); Monocytes # 0.1 10*3/uL (0.11-0.8); Monocytes % 3.6 % (1.7-12.7); Neutrophils # 3.5 10*3/uL (1.4-7.4); Neutrophils % 88.8 % (38.7-73.9); Platelet Count 120 T/CUMM (130-400); Red Blood Count 3.24 MC/CUMM (3.8-5.5); Red Cell Distribution Width 15.6 % (9.3-17.3); White Blood Count 3.9 T/CUMM (4-12)
[2017-11-23 07:39] LABS: Band Neutrophils 13 % (0-10); Lymphocytes 20 % (20-55); Macrocytosis 2+; Platelet Estimate Normal; Segmented Neutrophils 61 % (50-85); Total Cells Counted 100
[2017-11-23 07:58] LABS: Albumin 1.9 G/DL (3.4-5.0); Bilirubin,Total 0.4 MG/DL (0.2-1.0); Calcium 9.5 MG/DL (8.5-10.1); Osmolality,Calculated 290.1 MOS/KG (273-304); Potassium 3.6 MMOL/L (3.5-5.1)
[2017-11-23] MEDS ORDERED: MAGNESIUM SULF RIDER 4 GM in PREMIX 1 EACH IV PRN (08:44)
[2017-11-23] MEDS ORDERED: MAGNESIUM SULF RIDER 2 GM in PREMIX 1 EACH IV PRN (08:44)
[2017-11-23] MEDS: VANCOMYCIN INJ 1,500 MG in SODIUM CHLORIDE 0.9% 500 ML IV SCH (08:59)
[2017-11-23] MEDS: POTASSIUM CHLORIDE 20 MEQ/15 ML UDCUP PER TUBE PRN ×2 (09:00→15:43)
[2017-11-23] MEDS: FUROSEMIDE 40 MG/4 ML VIAL IV SCH (09:00)
[2017-11-23] MEDS: AMIODARONE 200 MG TABLET PO SCH (09:00)
[2017-11-23] MEDS: ASCORBIC ACID 500 MG TABLET PO SCH (09:00)
[2017-11-23] MEDS: BACLOFEN 10 MG TABLET PO SCH ×3 (09:00→21:59)
[2017-11-23] MEDS: METOPROLOL TARTRATE 25 MG TABLET PO SCH (09:01)
[2017-11-23] MEDS: DULoxetine 30 MG CAPSULE PO SCH (09:01)
[2017-11-23] MEDS: ASPIRIN CHEW 81 MG TABLET PO SCH (09:01)
[2017-11-23] MEDS: GABAPENTIN 600 MG TABLET PO SCH ×4 (09:01→21:59)
[2017-11-23] MEDS: rOPINIRole 4 MG TABLET PO SCH ×3 (09:01→21:59)
[2017-11-23] MEDS: APIXABAN 5 MG TABLET PO SCH ×2 (09:01→21:59)
[2017-11-23] MEDS: ZINC OXIDE PASTE 113 GM TUBE TOP SCH ×2 (09:02→21:59)
[2017-11-23] MEDS: LISINOPRIL 5 MG TABLET PO SCH (09:02)
[2017-11-23] MEDS: cefTRIAXone 2,000 MG in SYRINGE 1 EACH IV SCH (12:33)
[2017-11-23] MEDS ORDERED: NOREPINEPHRINE 4 MG/4 ML VIAL IV ONE (21:52)
[2017-11-23] MEDS: PANTOPRAZOLE 40 MG VIAL IV SCH (21:59)
[2017-11-23] MEDS: ATORVASTATIN 80 MG TABLET PO SCH (21:59)
[2017-11-24] MEDS: PROPOFOL 1,000 MG/100 ML BOTTLE IV SCH (00:20)
[2017-11-24] MEDS: INSULIN REGULAR 100 UNIT/ML SUBCUT SCH ×4 (00:36→18:23)
[2017-11-24] MEDS: DILTIAZEM INJ 100 MG in SODIUM CHLORIDE 0.9% 100 ML IV SCH (02:04)
[2017-11-24] MEDS: VANCOMYCIN INJ 1,500 MG in SODIUM CHLORIDE 0.9% 500 ML IV SCH ×2 (02:30→21:11)
[2017-11-24 04:35] LABS: ABG Base Excess 6.8 MMOL/L (-2.5-2.5); ABG HCO3 30.6 MMOL/L (20-26); ABG Oxygen Saturation 96.9 % (95-100); ABG PH 7.378 (7.35-7.45); ABG PO2 86.7 MM HG (80-95); ABG TCO2 29.7 MMOL/L (23-27); Pt O2 Delivery Device Ventilator
[2017-11-24 06:25] LABS: Basophils % 0.1 % (0.0-0.8); Hematocrit 27.6 VOL% (42.0-52.0); Hemoglobin 9.1 GM/DL (14.0-18.0); Immature Granulocytes % 2.5 %; Immature Granulocytes Absolute 0.18 #; Lymphocytes # 0.3 10*3/uL (1.4-4.0); Lymphocytes % 3.9 % (21.2-54.2); Mean Corpuscular Hemoglobin 31 PG (27-34); Mean Corpuscular Volume 95.2 FL (87-102); Monocytes # 0.5 10*3/uL (0.11-0.8); Monocytes % 6.5 % (1.7-12.7); Neutrophils # 6.3 10*3/uL (1.4-7.4); Platelet Count 175 T/CUMM (130-400); Red Cell Distribution Width 15.5 % (9.3-17.3); White Blood Count 7.3 T/CUMM (4-12)
[2017-11-24 06:48] LABS: Band Neutrophils 5 % (0-10); Lymphocytes 4 % (20-55); Segmented Neutrophils 79 % (50-85); Total Cells Counted 100
[2017-11-24 06:49] LABS: Hypochromasia 1+; Macrocytosis Slight; Platelet Estimate Adequate
[2017-11-24 06:53] LABS: Calcium 9.9 MG/DL (8.5-10.1); Osmolality,Calculated 286.4 MOS/KG (273-304); Potassium 3.7 MMOL/L (3.5-5.1)
[2017-11-24] MEDS: methylPREDNISolone SOD SUC 40 MG/1 ML VIAL IV SCH ×2 (07:06→18:42)
[2017-11-24] MEDS: FUROSEMIDE 40 MG/4 ML VIAL IV SCH (09:45)
[2017-11-24] MEDS: ASPIRIN CHEW 81 MG TABLET PO SCH (09:51)
[2017-11-24] MEDS: AMIODARONE 200 MG TABLET PO SCH (09:51)
[2017-11-24] MEDS: GABAPENTIN 600 MG TABLET PO SCH ×4 (09:51→21:11)
[2017-11-24] MEDS: rOPINIRole 4 MG TABLET PO SCH ×3 (09:51→21:12)
[2017-11-24] MEDS: LISINOPRIL 5 MG TABLET PO SCH (09:51)
[2017-11-24] MEDS: ZINC OXIDE PASTE 113 GM TUBE TOP SCH ×2 (09:52→21:11)
[2017-11-24] MEDS: BACLOFEN 10 MG TABLET PO SCH ×3 (09:52→21:11)
[2017-11-24] MEDS: ASCORBIC ACID 500 MG TABLET PO SCH (09:52)
[2017-11-24] MEDS: APIXABAN 5 MG TABLET PO SCH ×2 (09:52→21:12)
[2017-11-24] MEDS: DULoxetine 30 MG CAPSULE PO SCH (09:52)
[2017-11-24] MEDS: cefTRIAXone 2,000 MG in SYRINGE 1 EACH IV SCH (12:45)
[2017-11-24] MEDS: PANTOPRAZOLE 40 MG VIAL IV SCH (21:11)
[2017-11-24] MEDS: ATORVASTATIN 80 MG TABLET PO SCH (21:12)
[2017-11-24] MEDS ORDERED: ALTEPLASE 2 MG VIAL INTRACATH ONE (21:46)
[2017-11-25] MEDS: INSULIN REGULAR 100 UNIT/ML SUBCUT SCH ×4 (01:58→19:08)
[2017-11-25] MEDS: PROPOFOL 1,000 MG/100 ML BOTTLE IV SCH (03:00)
[2017-11-25] MEDS: NOREPINEPHRINE 8 MG in SODIUM CHLORIDE 0.9% 242 ML IV SCH (03:00)
[2017-11-25] MEDS: DILTIAZEM INJ 100 MG in SODIUM CHLORIDE 0.9% 100 ML IV SCH (03:01)
[2017-11-25 04:02] LABS: ABG HCO3 36.4 MMOL/L (20-26); ABG Oxygen Saturation 95.8 % (95-100); ABG PCO2 67.4 MM HG (35-48); ABG PO2 85.5 MM HG (80-95); ABG TCO2 38.4 MMOL/L (23-27); Allen Test Positive; Pt O2 Delivery Device Ventilator
[2017-11-25 05:48] LABS: Basophils % 0.5 % (0.0-0.8); Hematocrit 28.2 VOL% (42.0-52.0); Immature Granulocytes % 3.3 %; Immature Granulocytes Absolute 0.07 #; Lymphocytes # 0.1 10*3/uL (1.4-4.0); Lymphocytes % 6.7 % (21.2-54.2); Mean Corpuscular HGB Conc 31.9 GM/DL (32-36); Mean Corpuscular Hemoglobin 31 PG (27-34); Mean Corpuscular Volume 97.2 FL (87-102); Mean Platelet Volume 10.4 FL (9.6-12.0); Monocytes # 0.3 10*3/uL (0.11-0.8); Monocytes % 13.3 % (1.7-12.7); Neutrophils # 1.6 10*3/uL (1.4-7.4); Neutrophils % 76.2 % (38.7-73.9); Platelet Count 117 T/CUMM (130-400); Red Cell Distribution Width 15.3 % (9.3-17.3); White Blood Count 2.1 T/CUMM (4-12)
[2017-11-25 06:16] LABS: Band Neutrophils 8 % (0-10); Hypochromasia 1+; Lymphocytes 5 % (20-55); Microcytosis Slight; Nucleated Red Blood Cells 1 (0-5); Ovalocytes Slight; Platelet Estimate Decreased; Segmented Neutrophils 75 % (50-85); Total Cells Counted 100
[2017-11-25 06:27] LABS: Calcium 10.1 MG/DL (8.5-10.1); Potassium 3.7 MMOL/L (3.5-5.1)
[2017-11-25] MEDS: methylPREDNISolone SOD SUC 40 MG/1 ML VIAL IV SCH ×2 (06:43→19:36)
[2017-11-25] MEDS: FUROSEMIDE 40 MG/4 ML VIAL IV SCH (09:46)
[2017-11-25] MEDS: LISINOPRIL 5 MG TABLET PO SCH (09:48)
[2017-11-25] MEDS: AMIODARONE 200 MG TABLET PO SCH (09:49)
[2017-11-25] MEDS: BACLOFEN 10 MG TABLET PO SCH ×3 (09:49→21:50)
[2017-11-25] MEDS: rOPINIRole 4 MG TABLET PO SCH ×3 (09:49→21:50)
[2017-11-25] MEDS: ZINC OXIDE PASTE 113 GM TUBE TOP SCH ×2 (09:49→21:49)
[2017-11-25] MEDS: DULoxetine 30 MG CAPSULE PO SCH (09:49)
[2017-11-25] MEDS: GABAPENTIN 600 MG TABLET PO SCH ×4 (09:49→21:50)
[2017-11-25] MEDS: ASCORBIC ACID 500 MG TABLET PO SCH (09:49)
[2017-11-25] MEDS: ASPIRIN CHEW 81 MG TABLET PO SCH (09:49)
[2017-11-25] MEDS: cefTRIAXone 2,000 MG in SYRINGE 1 EACH IV SCH (12:51)
[2017-11-25] MEDS: VANCOMYCIN INJ 1,500 MG in SODIUM CHLORIDE 0.9% 500 ML IV SCH (15:20)
[2017-11-25] MEDS: PANTOPRAZOLE 40 MG VIAL IV SCH (21:49)
[2017-11-25] MEDS: ATORVASTATIN 80 MG TABLET PO SCH (21:50)
[2017-11-26] MEDS: INSULIN REGULAR 100 UNIT/ML SUBCUT SCH ×4 (00:30→18:22)
[2017-11-26] MEDS: PROPOFOL 1,000 MG/100 ML BOTTLE IV SCH (00:48)
[2017-11-26] MEDS: NOREPINEPHRINE 8 MG in SODIUM CHLORIDE 0.9% 242 ML IV SCH ×2 (00:48→03:39)
[2017-11-26 03:05] LABS: ABG Base Excess 9.9 MMOL/L (-2.5-2.5); ABG HCO3 33.6 MMOL/L (20-26); ABG Oxygen Saturation 96.7 % (95-100); ABG PCO2 63.3 MM HG (35-48); ABG PH 7.376 (7.35-7.45); ABG PO2 84.2 MM HG (80-95); ABG TCO2 34.1 MMOL/L (23-27); Allen Test Positive; Pt O2 Delivery Device Ventilator
[2017-11-26 06:26] LABS: Basophils % 0.2 % (0.0-0.8); Hematocrit 27.1 VOL% (42.0-52.0); Hemoglobin 8.8 GM/DL (14.0-18.0); Immature Granulocytes % 2.8 %; Immature Granulocytes Absolute 0.15 #; Lymphocytes # 0.2 10*3/uL (1.4-4.0); Lymphocytes % 4.3 % (21.2-54.2); Mean Corpuscular HGB Conc 32.5 GM/DL (32-36); Mean Corpuscular Hemoglobin 31 PG (27-34); Mean Corpuscular Volume 96.1 FL (87-102); Mean Platelet Volume 11.1 FL (9.6-12.0); Monocytes # 0.5 10*3/uL (0.11-0.8); Neutrophils # 4.5 10*3/uL (1.4-7.4); Neutrophils % 82.7 % (38.7-73.9); Platelet Count 238 T/CUMM (130-400); Red Blood Count 2.82 MC/CUMM (3.8-5.5); Red Cell Distribution Width 15.8 % (9.3-17.3); White Blood Count 5.4 T/CUMM (4-12)
[2017-11-26] MEDS: methylPREDNISolone SOD SUC 40 MG/1 ML VIAL IV SCH ×2 (06:35→18:23)
[2017-11-26 06:46] LABS: Calcium 10.1 MG/DL (8.5-10.1); Osmolality,Calculated 307.6 MOS/KG (273-304); Potassium 3.9 MMOL/L (3.5-5.1)
[2017-11-26 06:55] LABS: Band Neutrophils 10 % (0-10); Giant Platelets Few; Hypochromasia 1+; Lymphocytes 5 % (20-55); Microcytosis Slight; Myelocytes 1 %; Nucleated Red Blood Cells 1 (0-5); Platelet Estimate Adequate; Segmented Neutrophils 74 % (50-85); Total Cells Counted 100
[2017-11-26] MEDS ORDERED: LIDOCAINE 1% 20 ML VIAL MISC INJ ONE (07:03)
[2017-11-26] MEDS ORDERED: LIDOCAINE 2% 20 ML VIAL RESP TX ONE (07:03)
[2017-11-26] MEDS ORDERED: MIDAZOLAM 10 MG/2 ML VIAL ONE (07:22)
[2017-11-26] MEDS ORDERED: MIDAZOLAM 2 MG/2 ML VIAL IV ONE ×2 (07:25→07:30)
[2017-11-26] MEDS ORDERED: MORPHINE 2 MG/1 ML SYRINGE IV ONE (07:30)
[2017-11-26] MEDS: rOPINIRole 4 MG TABLET PO SCH ×3 (09:00→20:56)
[2017-11-26] MEDS: AMIODARONE 200 MG TABLET PO SCH (09:00)
[2017-11-26] MEDS: ASCORBIC ACID 500 MG TABLET PO SCH (09:00)
[2017-11-26] MEDS: GABAPENTIN 600 MG TABLET PO SCH ×4 (09:00→20:56)
[2017-11-26] MEDS: LISINOPRIL 5 MG TABLET PO SCH (09:00)
[2017-11-26] MEDS: BACLOFEN 10 MG TABLET PO SCH ×3 (09:00→20:56)
[2017-11-26] MEDS: DULoxetine 30 MG CAPSULE PO SCH (09:00)
[2017-11-26] MEDS: ASPIRIN CHEW 81 MG TABLET PO SCH (09:00)
[2017-11-26] MEDS: ZINC OXIDE PASTE 113 GM TUBE TOP SCH (09:30)
[2017-11-26] MEDS: VANCOMYCIN INJ 1,500 MG in SODIUM CHLORIDE 0.9% 500 ML IV SCH (09:30)
[2017-11-26] MEDS: FUROSEMIDE 40 MG/4 ML VIAL IV SCH (09:30)
[2017-11-26] MEDS: cefTRIAXone 2,000 MG in SYRINGE 1 EACH IV SCH (13:00)
[2017-11-26] MEDS: PANTOPRAZOLE 40 MG VIAL IV SCH (20:56)
[2017-11-26] MEDS: ATORVASTATIN 80 MG TABLET PO SCH (20:56)
[2017-11-27] MEDS: ZINC OXIDE PASTE 113 GM TUBE TOP SCH ×2 (02:38→09:22)
[2017-11-27] MEDS: INSULIN REGULAR 100 UNIT/ML SUBCUT SCH ×4 (02:38→18:25)
[2017-11-27] MEDS: PROPOFOL 1,000 MG/100 ML BOTTLE IV SCH (02:38)
[2017-11-27] MEDS: VANCOMYCIN INJ 1,500 MG in SODIUM CHLORIDE 0.9% 500 ML IV SCH (02:53)
[2017-11-27] MEDS: NOREPINEPHRINE 8 MG in SODIUM CHLORIDE 0.9% 242 ML IV SCH (02:53)
[2017-11-27 04:08] LABS: ABG Base Excess 12.8 MMOL/L (-2.5-2.5); ABG HCO3 36.6 MMOL/L (20-26); ABG Oxygen Saturation 97.2 % (95-100); ABG PCO2 51.5 MM HG (35-48); ABG PH 7.479 (7.35-7.45); ABG PO2 82.4 MM HG (80-95); ABG TCO2 34.9 MMOL/L (23-27); Allen Test Positive; Pt O2 Delivery Device Ventilator
[2017-11-27 06:13] LABS: Hematocrit 24.1 VOL% (42.0-52.0); Hemoglobin 7.8 GM/DL (14.0-18.0); Immature Granulocytes % 5.1 %; Immature Granulocytes Absolute 0.08 #; Lymphocytes # 0.2 10*3/uL (1.4-4.0); Lymphocytes % 11.5 % (21.2-54.2); Mean Corpuscular HGB Conc 32.4 GM/DL (32-36); Mean Corpuscular Hemoglobin 31 PG (27-34); Mean Corpuscular Volume 95.6 FL (87-102); Mean Platelet Volume 10.9 FL (9.6-12.0); Monocytes # 0.2 10*3/uL (0.11-0.8); Monocytes % 11.5 % (1.7-12.7); Neutrophils # 1.1 10*3/uL (1.4-7.4); Neutrophils % 71.9 % (38.7-73.9); Platelet Count 136 T/CUMM (130-400); Red Blood Count 2.52 MC/CUMM (3.8-5.5); Red Cell Distribution Width 15.5 % (9.3-17.3); White Blood Count 1.6 T/CUMM (4-12)
[2017-11-27] MEDS ORDERED: SODIUM CHLORIDE 0.9% 1,000 ML IV PRN (06:46)
[2017-11-27 06:49] LABS: Band Neutrophils 7 % (0-10); Hypochromasia 1+; Lymphocytes 16 % (20-55); Metamyelocytes 1 %; Microcytosis Slight; Nucleated Red Blood Cells 1 (0-5); Segmented Neutrophils 64 % (50-85); Total Cells Counted 100
[2017-11-27 06:50] LABS: Ovalocytes Slight; Platelet Estimate Adequate
[2017-11-27 07:12] LABS: Prealbumin 22.2 MG/DL (20-40)
[2017-11-27 07:15] LABS: Calcium 9.6 MG/DL (8.5-10.1)
[2017-11-27] MEDS: methylPREDNISolone SOD SUC 40 MG/1 ML VIAL IV SCH ×2 (07:39→18:25)
[2017-11-27] MEDS: FUROSEMIDE 40 MG/4 ML VIAL IV SCH (09:19)
[2017-11-27] MEDS: ASPIRIN CHEW 81 MG TABLET PO SCH (09:20)
[2017-11-27] MEDS: rOPINIRole 4 MG TABLET PO SCH ×2 (09:20→15:29)
[2017-11-27] MEDS: AMIODARONE 200 MG TABLET PO SCH (09:20)
[2017-11-27] MEDS: BACLOFEN 10 MG TABLET PO SCH ×2 (09:20→15:28)
[2017-11-27] MEDS: GABAPENTIN 600 MG TABLET PO SCH ×3 (09:21→17:26)
[2017-11-27] MEDS: LISINOPRIL 5 MG TABLET PO SCH (09:21)
[2017-11-27] MEDS: DULoxetine 30 MG CAPSULE PO SCH (09:21)
[2017-11-27] MEDS: ASCORBIC ACID 500 MG TABLET PO SCH (09:21)
[2017-11-27] MEDS: cefTRIAXone 2,000 MG in SYRINGE 1 EACH IV SCH (11:57)
[2017-11-27] MEDS: PANTOPRAZOLE INJ 200 MG in SODIUM CHLORIDE 0.9% 250 ML IV SCH (17:26)
[2017-11-27 18:13] LABS: Hematocrit 33.8 VOL% (42.0-52.0); Hemoglobin 10.8 GM/DL (14.0-18.0)
[2017-11-28] MEDS: ZINC OXIDE PASTE 113 GM TUBE TOP SCH ×3 (00:41→20:30)
[2017-11-28] MEDS: VANCOMYCIN INJ 1,500 MG in SODIUM CHLORIDE 0.9% 500 ML IV SCH ×2 (00:41→14:28)
[2017-11-28] MEDS: ATORVASTATIN 80 MG TABLET PO SCH ×2 (00:42→22:32)
[2017-11-28] MEDS: BACLOFEN 10 MG TABLET PO SCH ×4 (00:42→22:31)
[2017-11-28] MEDS: NOREPINEPHRINE 8 MG in SODIUM CHLORIDE 0.9% 242 ML IV SCH (00:43)
[2017-11-28] MEDS: GABAPENTIN 600 MG TABLET PO SCH ×5 (00:43→22:33)
[2017-11-28] MEDS: PROPOFOL 1,000 MG/100 ML BOTTLE IV SCH (00:43)
[2017-11-28] MEDS: rOPINIRole 4 MG TABLET PO SCH ×4 (00:43→22:33)
[2017-11-28] MEDS: INSULIN REGULAR 100 UNIT/ML SUBCUT SCH ×4 (01:10→18:17)
[2017-11-28 04:21] LABS: ABG Base Excess 12.6 MMOL/L (-2.5-2.5); ABG HCO3 37.4 MMOL/L (20-26); ABG Oxygen Saturation 95.1 % (95-100); ABG PCO2 49.4 MM HG (35-48); ABG PH 7.497 (7.35-7.45); ABG PO2 73.1 MM HG (80-95); ABG TCO2 38.9 MMOL/L (23-27); Allen Test Positive; Pt O2 Delivery Device Ventilator
[2017-11-28 05:26] LABS: Basophils % 0.2 % (0.0-0.8); Hematocrit 30.3 VOL% (42.0-52.0); Hemoglobin 10.3 GM/DL (14.0-18.0); Immature Granulocytes % 5.9 %; Immature Granulocytes Absolute 0.24 #; Lymphocytes # 0.3 10*3/uL (1.4-4.0); Lymphocytes % 7.1 % (21.2-54.2); Mean Corpuscular Hemoglobin 32 PG (27-34); Mean Corpuscular Volume 92.9 FL (87-102); Monocytes # 0.2 10*3/uL (0.11-0.8); Monocytes % 4.4 % (1.7-12.7); Neutrophils # 3.4 10*3/uL (1.4-7.4); Neutrophils % 82.4 % (38.7-73.9); Platelet Count 138 T/CUMM (130-400); Red Blood Count 3.26 MC/CUMM (3.8-5.5); Red Cell Distribution Width 15.5 % (9.3-17.3); White Blood Count 4.1 T/CUMM (4-12)
[2017-11-28 05:50] LABS: Band Neutrophils 5 % (0-10); Lymphocytes 7 % (20-55); Segmented Neutrophils 82 % (50-85); Total Cells Counted 100
[2017-11-28 05:51] LABS: Giant Platelets Few; Hypochromasia 1+; Microcytosis Slight; Platelet Estimate Normal
[2017-11-28 06:42] LABS: Calcium 9.9 MG/DL (8.5-10.1); Osmolality,Calculated 309.1 MOS/KG (273-304); Potassium 3.6 MMOL/L (3.5-5.1)
[2017-11-28] MEDS: methylPREDNISolone SOD SUC 40 MG/1 ML VIAL IV SCH ×2 (06:47→18:20)
[2017-11-28 07:44] LABS: Pt O2 Delivery Device Ventilator
[2017-11-28 07:45] LABS: ABG Base Excess 10.8 MMOL/L (-2.5-2.5); ABG HCO3 34.5 MMOL/L (20-26); ABG Oxygen Saturation 94.1 % (95-100); ABG PCO2 48.2 MM HG (35-48); ABG PH 7.481 (7.35-7.45); ABG PO2 65.5 MM HG (80-95); ABG TCO2 32.2 MMOL/L (23-27)
[2017-11-28] MEDS: ASCORBIC ACID 500 MG TABLET PO SCH (08:39)
[2017-11-28] MEDS: AMIODARONE 200 MG TABLET PO SCH (08:39)
[2017-11-28] MEDS: LISINOPRIL 5 MG TABLET PO SCH (08:40)
[2017-11-28] MEDS: DULoxetine 30 MG CAPSULE PO SCH (08:44)
[2017-11-28] MEDS: FUROSEMIDE 40 MG/4 ML VIAL IV SCH (08:54)
[2017-11-28] MEDS: cefTRIAXone 2,000 MG in SYRINGE 1 EACH IV SCH (12:42)
[2017-11-28] MEDS: APIXABAN 5 MG TABLET PO SCH ×2 (15:50→22:31)
[2017-11-28] MEDS: PANTOPRAZOLE INJ 200 MG in SODIUM CHLORIDE 0.9% 250 ML IV SCH (18:15)
[2017-11-29] MEDS: INSULIN REGULAR 100 UNIT/ML SUBCUT SCH ×5 (01:10→23:53)
[2017-11-29] MEDS: NOREPINEPHRINE 8 MG in SODIUM CHLORIDE 0.9% 242 ML IV SCH (01:10)
[2017-11-29] MEDS: PROPOFOL 1,000 MG/100 ML BOTTLE IV SCH (01:10)
[2017-11-29 03:30] LABS: ABG Base Excess 8.4 MMOL/L (-2.5-2.5); ABG HCO3 32.8 MMOL/L (20-26); ABG Oxygen Saturation 95.4 % (95-100); ABG PCO2 44.5 MM HG (35-48); ABG PH 7.485 (7.35-7.45); ABG PO2 78.8 MM HG (80-95); ABG TCO2 34.1 MMOL/L (23-27)
[2017-11-29 04:48] LABS: Hematocrit 32.4 VOL% (42.0-52.0); Hemoglobin 10.5 GM/DL (14.0-18.0); Immature Granulocytes % 7.4 %; Immature Granulocytes Absolute 0.16 #; Lymphocytes # 0.3 10*3/uL (1.4-4.0); Lymphocytes % 12.5 % (21.2-54.2); Mean Corpuscular HGB Conc 32.4 GM/DL (32-36); Mean Corpuscular Hemoglobin 31 PG (27-34); Mean Corpuscular Volume 94.2 FL (87-102); Mean Platelet Volume 10.3 FL (9.6-12.0); Monocytes # 0.2 10*3/uL (0.11-0.8); Monocytes % 8.3 % (1.7-12.7); Neutrophils # 1.6 10*3/uL (1.4-7.4); Neutrophils % 71.8 % (38.7-73.9); Platelet Count 144 T/CUMM (130-400); Red Blood Count 3.44 MC/CUMM (3.8-5.5); Red Cell Distribution Width 14.9 % (9.3-17.3); White Blood Count 2.2 T/CUMM (4-12)
[2017-11-29 05:20] LABS: Calcium 9.7 MG/DL (8.5-10.1); Osmolality,Calculated 310.3 MOS/KG (273-304); Potassium 3.3 MMOL/L (3.5-5.1)
[2017-11-29 05:56] LABS: Band Neutrophils 6 % (0-10); Lymphocytes 17 % (20-55); Metamyelocytes 1 %; Segmented Neutrophils 68 % (50-85); Total Cells Counted 100
[2017-11-29 05:57] LABS: Hypochromasia 1+; Microcytosis Slight; Ovalocytes Slight; Platelet Estimate Adequate; Tear Drop Cells Slight
[2017-11-29] MEDS: methylPREDNISolone SOD SUC 40 MG/1 ML VIAL IV SCH ×2 (06:29→18:10)
[2017-11-29] MEDS: POTASSIUM CHLORIDE RIDER 10 MEQ in PREMIX 1 EACH IV PRN ×4 (07:10→13:15)
[2017-11-29] MEDS: VANCOMYCIN INJ 1,500 MG in SODIUM CHLORIDE 0.9% 500 ML IV SCH (08:30)
[2017-11-29] MEDS: FUROSEMIDE 40 MG/4 ML VIAL IV SCH (09:10)
[2017-11-29] MEDS: DULoxetine 30 MG CAPSULE PO SCH (09:10)
[2017-11-29] MEDS: GABAPENTIN 600 MG TABLET PO SCH ×4 (09:10→22:05)
[2017-11-29] MEDS: APIXABAN 5 MG TABLET PO SCH ×2 (09:10→22:04)
[2017-11-29] MEDS: LISINOPRIL 5 MG TABLET PO SCH (09:10)
[2017-11-29] MEDS: AMIODARONE 200 MG TABLET PO SCH (09:10)
[2017-11-29] MEDS: ASCORBIC ACID 500 MG TABLET PO SCH (09:10)
[2017-11-29] MEDS: BACLOFEN 10 MG TABLET PO SCH ×3 (09:10→22:04)
[2017-11-29] MEDS: rOPINIRole 4 MG TABLET PO SCH ×3 (09:10→22:05)
[2017-11-29] MEDS: ZINC OXIDE PASTE 113 GM TUBE TOP SCH ×2 (11:00→22:04)
[2017-11-29] MEDS: cefTRIAXone 2,000 MG in SYRINGE 1 EACH IV SCH (12:25)
[2017-11-29] MEDS: ATORVASTATIN 80 MG TABLET PO SCH (22:04)
[2017-11-29] MEDS: PANTOPRAZOLE 40 MG VIAL IV SCH (22:05)
[2017-11-30 02:10] LABS: Calcium 9.4 MG/DL (8.5-10.1); Osmolality,Calculated 301.8 MOS/KG (273-304); Potassium 3.9 MMOL/L (3.5-5.1)
[2017-11-30] MEDS: PROPOFOL 1,000 MG/100 ML BOTTLE IV SCH ×2 (03:13→23:57)
[2017-11-30] MEDS: NOREPINEPHRINE 8 MG in SODIUM CHLORIDE 0.9% 242 ML IV SCH ×2 (03:13→23:56)
[2017-11-30] MEDS: VANCOMYCIN INJ 1,500 MG in SODIUM CHLORIDE 0.9% 500 ML IV SCH ×2 (03:14→21:00)
[2017-11-30 03:56] LABS: ABG Base Excess 5.7 MMOL/L (-2.5-2.5); ABG HCO3 29.6 MMOL/L (20-26); ABG PCO2 48.2 MM HG (35-48); ABG PH 7.418 (7.35-7.45); ABG PO2 72.5 MM HG (80-95); ABG TCO2 28.3 MMOL/L (23-27)
[2017-11-30] MEDS: INSULIN REGULAR 100 UNIT/ML SUBCUT SCH ×3 (06:45→18:46)
[2017-11-30] MEDS: methylPREDNISolone SOD SUC 40 MG/1 ML VIAL IV SCH ×2 (06:45→18:46)
[2017-11-30] MEDS: DULoxetine 30 MG CAPSULE PO SCH (09:25)
[2017-11-30] MEDS: APIXABAN 5 MG TABLET PO SCH ×2 (09:25→21:00)
[2017-11-30] MEDS: BACLOFEN 10 MG TABLET PO SCH ×3 (09:25→21:00)
[2017-11-30] MEDS: ASCORBIC ACID 500 MG TABLET PO SCH (09:25)
[2017-11-30] MEDS: rOPINIRole 4 MG TABLET PO SCH ×3 (09:25→21:00)
[2017-11-30] MEDS: GABAPENTIN 600 MG TABLET PO SCH ×4 (09:25→21:00)
[2017-11-30] MEDS: FUROSEMIDE 40 MG/4 ML VIAL IV SCH (09:26)
[2017-11-30] MEDS: AMIODARONE 200 MG TABLET PO SCH (09:26)
[2017-11-30] MEDS: ZINC OXIDE PASTE 113 GM TUBE TOP SCH ×2 (09:26→21:00)
[2017-11-30] MEDS: LISINOPRIL 5 MG TABLET PO SCH (09:26)
[2017-11-30] MEDS: PANTOPRAZOLE 40 MG VIAL IV SCH ×2 (09:53→21:00)
[2017-11-30] MEDS: cefTRIAXone 2,000 MG in SYRINGE 1 EACH IV SCH (13:12)
[2017-11-30] MEDS: ATORVASTATIN 80 MG TABLET PO SCH (21:00)
[2017-12-01 03:21] LABS: Allen Test Positive; Pt O2 Delivery Device Ventilator
[2017-12-01 03:22] LABS: ABG Base Excess 6.3 MMOL/L (-2.5-2.5); ABG HCO3 30.1 MMOL/L (20-26); ABG Oxygen Saturation 97.2 % (95-100); ABG PH 7.433 (7.35-7.45); ABG PO2 84.3 MM HG (80-95); ABG TCO2 28.5 MMOL/L (23-27)
[2017-12-01] MEDS: INSULIN REGULAR 100 UNIT/ML SUBCUT SCH ×4 (03:32→17:22)
[2017-12-01 04:47] LABS: Basophils % 0.8 % (0.0-0.8); Hematocrit 31.1 VOL% (42.0-52.0); Hemoglobin 10.3 GM/DL (14.0-18.0); Immature Granulocytes % 2.4 %; Immature Granulocytes Absolute 0.03 #; Lymphocytes # 0.2 10*3/uL (1.4-4.0); Lymphocytes % 12.8 % (21.2-54.2); Mean Corpuscular HGB Conc 33.1 GM/DL (32-36); Mean Corpuscular Hemoglobin 31 PG (27-34); Mean Corpuscular Volume 94.2 FL (87-102); Mean Platelet Volume 10.5 FL (9.6-12.0); Monocytes # 0.1 10*3/uL (0.11-0.8); Monocytes % 11.2 % (1.7-12.7); Neutrophils # 0.9 10*3/uL (1.4-7.4); Neutrophils % 72.8 % (38.7-73.9); Platelet Count 124 T/CUMM (130-400); Red Cell Distribution Width 14.4 % (9.3-17.3); White Blood Count 1.3 T/CUMM (4-12)
[2017-12-01 05:18] LABS: Calcium 9.5 MG/DL (8.5-10.1); Osmolality,Calculated 298.3 MOS/KG (273-304); Potassium 3.9 MMOL/L (3.5-5.1)
[2017-12-01 05:53] LABS: Band Neutrophils 8 % (0-10); Giant Platelets Few; Hypochromasia 1+; Lymphocytes 11 % (20-55); Microcytosis Slight; Ovalocytes Slight; Platelet Estimate Normal; Segmented Neutrophils 68 % (50-85); Total Cells Counted 100
[2017-12-01] MEDS: methylPREDNISolone SOD SUC 40 MG/1 ML VIAL IV SCH ×2 (07:09→18:30)
[2017-12-01] MEDS: GABAPENTIN 600 MG TABLET PO SCH ×4 (08:49→22:01)
[2017-12-01] MEDS: rOPINIRole 4 MG TABLET PO SCH ×3 (08:49→22:01)
[2017-12-01] MEDS: ZINC OXIDE PASTE 113 GM TUBE TOP SCH ×2 (08:50→22:02)
[2017-12-01] MEDS: DULoxetine 30 MG CAPSULE PO SCH (08:50)
[2017-12-01] MEDS: FUROSEMIDE 40 MG/4 ML VIAL IV SCH (08:50)
[2017-12-01] MEDS: AMIODARONE 200 MG TABLET PO SCH (08:50)
[2017-12-01] MEDS: ASCORBIC ACID 500 MG TABLET PO SCH (08:50)
[2017-12-01] MEDS: LISINOPRIL 5 MG TABLET PO SCH (08:50)
[2017-12-01] MEDS: APIXABAN 5 MG TABLET PO SCH ×2 (08:50→22:01)
[2017-12-01] MEDS: BACLOFEN 10 MG TABLET PO SCH ×3 (08:50→22:01)
[2017-12-01] MEDS: PANTOPRAZOLE 40 MG VIAL IV SCH ×2 (08:53→22:07)
[2017-12-01] MEDS: ACETAMINOPHEN 325 MG TABLET PO PRN (10:22)
[2017-12-01] MEDS: cefTRIAXone 2,000 MG in SYRINGE 1 EACH IV SCH (11:45)
[2017-12-01] MEDS ORDERED: POTASSIUM PHOSPHATE 15 MMOL in SODIUM CHLORIDE 0.9% 100 ML IV ONE (13:30)
[2017-12-01] MEDS: VANCOMYCIN INJ 1,500 MG in SODIUM CHLORIDE 0.9% 500 ML IV SCH (14:58)
[2017-12-01] MEDS: FILGRASTIM-SNDZ 480 MCG/0.8 ML SYRINGE SUBCUT SCH (17:35)
[2017-12-01] MEDS: ATORVASTATIN 80 MG TABLET PO SCH (22:02)
[2017-12-02] MEDS: INSULIN REGULAR 100 UNIT/ML SUBCUT SCH ×3 (01:05→11:44)
[2017-12-02] MEDS: PROPOFOL 1,000 MG/100 ML BOTTLE IV SCH (01:06)
[2017-12-02] MEDS: NOREPINEPHRINE 8 MG in SODIUM CHLORIDE 0.9% 242 ML IV SCH (01:06)
[2017-12-02 04:18] LABS: ABG Base Excess 8.5 MMOL/L (-2.5-2.5); ABG HCO3 32.1 MMOL/L (20-26); ABG PCO2 41.6 MM HG (35-48); ABG TCO2 29.2 MMOL/L (23-27); Allen Test Positive; Pt O2 Delivery Device Ventilator
[2017-12-02] MEDS: methylPREDNISolone SOD SUC 40 MG/1 ML VIAL IV SCH (07:12)
[2017-12-02] MEDS: PANTOPRAZOLE 40 MG VIAL IV SCH (08:12)
[2017-12-02] MEDS: APIXABAN 5 MG TABLET PO SCH (08:15)
[2017-12-02] MEDS: ASCORBIC ACID 500 MG TABLET PO SCH (08:15)
[2017-12-02] MEDS: FUROSEMIDE 40 MG/4 ML VIAL IV SCH (08:15)
[2017-12-02] MEDS: rOPINIRole 4 MG TABLET PO SCH ×2 (08:15→14:25)
[2017-12-02] MEDS: DULoxetine 30 MG CAPSULE PO SCH (08:15)
[2017-12-02] MEDS: AMIODARONE 200 MG TABLET PO SCH (08:15)
[2017-12-02] MEDS: LISINOPRIL 5 MG TABLET PO SCH (08:15)
[2017-12-02] MEDS: BACLOFEN 10 MG TABLET PO SCH ×2 (08:15→14:25)
[2017-12-02] MEDS: GABAPENTIN 600 MG TABLET PO SCH ×2 (08:15→12:16)
[2017-12-02] MEDS: ZINC OXIDE PASTE 113 GM TUBE TOP SCH (08:16)
[2017-12-02] MEDS: VANCOMYCIN INJ 1,500 MG in SODIUM CHLORIDE 0.9% 500 ML IV SCH (08:16)
[2017-12-02] MEDS: FILGRASTIM-SNDZ 480 MCG/0.8 ML SYRINGE SUBCUT SCH (08:17)
[2017-12-02 08:46] LABS: Hematocrit 30.2 VOL% (42.0-52.0); Hemoglobin 10.2 GM/DL (14.0-18.0); Immature Granulocytes % 7.9 %; Immature Granulocytes Absolute 0.08 #; Lymphocytes # 0.1 10*3/uL (1.4-4.0); Lymphocytes % 13.9 % (21.2-54.2); Mean Corpuscular HGB Conc 33.8 GM/DL (32-36); Mean Corpuscular Hemoglobin 31 PG (27-34); Mean Corpuscular Volume 91.8 FL (87-102); Mean Platelet Volume 10.4 FL (9.6-12.0); Monocytes # 0.1 10*3/uL (0.11-0.8); Monocytes % 9.9 % (1.7-12.7); Neutrophils # 0.7 10*3/uL (1.4-7.4); Neutrophils % 68.3 % (38.7-73.9); Platelet Count 104 T/CUMM (130-400); Red Blood Count 3.29 MC/CUMM (3.8-5.5); Red Cell Distribution Width 14.1 % (9.3-17.3)
[2017-12-02 09:25] LABS: Band Neutrophils 15 % (0-10); Lymphocytes 19 % (20-55); Segmented Neutrophils 57 % (50-85); Total Cells Counted 100
[2017-12-02 09:26] LABS: Hypochromasia 1+; Microcytosis Slight; Ovalocytes Slight; Platelet Estimate Decreased
[2017-12-02] MEDS: ACETAMINOPHEN 325 MG TABLET PO PRN (10:01)
[2017-12-02] MEDS: cefTRIAXone 2,000 MG in SYRINGE 1 EACH IV SCH (11:44)
[2017-12-02 15:00] VITALS: BP 111/60
== END 2017-12-02 15:50 | DRG 4 ==
LOC: N.ED 18:28 → SUATTDRO 20:56 → N.EDINP 20:56 → N.ICU 22:02
PROVIDERS: ADMIT Family Medicine; ATTEND Hospitalist